=== PATIENT | male | born 1955 | race Native Hawaiian/Other Pacific Islander ===

== ENCOUNTER 2019-08-26 19:34 | Observation (INO) | payer OTHER ==
[~2019-08-26] VITALS: Ht 172.7 cm; Wt 147.9 kg
[2019-08-26 19:34] VITALS: BP 176/100; TEMP 98.7
[2019-08-26 20:35] LABS: PLATELET COUNT 225 K/uL (142-355)
[2019-08-26 20:47] LABS: POTASSIUM 2.9 mmol/L (3.6-5.2)
[2019-08-27 00:05] VITALS: BP 146/62; TEMP 98.4
[2019-08-27 01:13] VITALS: BP 131/71; TEMP 98; Ht 172.7 cm; Wt 147.9 kg
[2019-08-27 04:00] VITALS: BP 130/79; TEMP 98.2
[2019-08-27 08:00] VITALS: BP 156/79; BP 98/62; TEMP 97.8; TEMP 97.9
[2019-08-27 08:53] LABS: POTASSIUM 4.2 mmol/L (3.6-5.2)
[2019-08-27 12:00] VITALS: BP 161/79; TEMP 98.1
== END 2019-08-27 12:15 | disposition home or self-care (01) ==
LOC: ED 19:43 → MED/SURG 23:44
PROVIDERS: ADMIT Internal Medicine
DX: E87.6 Hypokalemia (principal); I10 Essential (primary) hypertension; G47.39 Other sleep apnea; I50.9 Heart failure, unspecified
CPT/HCPCS: 36415; 80048; 80053; 83735; 85027; 96365; 96366; 96367; 99220; 99284; G0378